=== PATIENT | male | born 1980 | race Caucasian/White ===

== ENCOUNTER 2023-07-18 11:35 | Emergency (ER) | payer OTHER ==
[~2023-07-18] VITALS: Ht 172.7 cm; Wt 99.3 kg
[~2023-07-18 11:35] MED LIST: AMBIEN
[2023-07-18 11:50] VITALS: BP 140/87; PULSE 81; RESP 20; TEMP 96.9; O2SAT 97
[2023-07-18] MEDS ORDERED: ACETAMINOPHEN EXTRA STRENGTH 500 MG TAB PO ONE (13:25)
[2023-07-18] MEDS ORDERED: MORPHINE SULFATE 4 MG/ML SYR IM ONE (13:25)
[2023-07-18] MEDS ORDERED: LIDOCAINE 5% 1 EA PATCH TP SCH (13:25)
[2023-07-18] MEDS ORDERED: BACLOFEN 10 MG TAB PO SCH (13:25)
[2023-07-18] MEDS ORDERED: CYCL-711 PO (14:09)
[2023-07-18] MEDS ORDERED: NAPR-1704 PO (14:09)
[2023-07-18] MEDS ORDERED: DICL20GE TP (14:09)
[2023-07-18] MEDS ORDERED: LID5T TP (14:09)
[2023-07-18] MEDS ORDERED: ACET-5629 PO (14:09)
[2023-07-18] MEDS ORDERED: MELA10CA PO (14:27)
[2023-07-18 14:40] VITALS: BP 140/87; PULSE 81; RESP 20; TEMP 96.9; O2SAT 97
[2023-07-18] MEDS ORDERED: ZOLP10TA1 PO (15:02)
== END 2023-07-18 14:40 | disposition home or self-care (01) ==
LOC: MED 11:35
DX: S39.012A Strain of muscle, fascia and tendon of lower back, initial encounter (principal); G47.00 Insomnia, unspecified; Z76.0 Encounter for issue of repeat prescription; F17.210 Nicotine dependence, cigarettes, uncomplicated; Z79.899 Other long term (current) drug therapy; Z79.1 Long term (current) use of non-steroidal anti-inflammatories (NSAID); X50.0XXA Overexertion from strenuous movement or load, initial encounter; Y92.89 Other specified places as the place of occurrence of the external cause; Y93.89 Activity, other specified; Y99.8 Other external cause status
CPT/HCPCS: 96372; 99284; J2270